=== PATIENT | female | born 2000 | race Hispanic/Latino ===

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

== ENCOUNTER 2019-10-21 19:52 | Observation (INO) ==
[2019-10-21] MEDS ORDERED: BOOSTRIX VACCINE IM ONE (20:01)
[2019-10-21] MEDS ORDERED: KEFZOL 1 GM/D5W 1 GM/50 ML IVPB IV ONE (20:01)
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
[2019-10-21] MEDS ORDERED: DILAUDID IV ONE (20:41)
[2019-10-21] MEDS ORDERED: ZOFRAN IV ONE (20:42)
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
[2019-10-21] MEDS ORDERED: ZOFRAN IV PRN (21:17)
[2019-10-21] MEDS ORDERED: NS 1,000 ML IV ONE (21:17)
[2019-10-21 21:30] LABS: BASO# 0.04 X1000 (0.0-0.2); BASO% 0.2 % (0.0-0.8); EOS# 0.22 X1000 (0.0-0.7); EOS% 1.3 % (0.0-10.0); HEMATOCRIT 43.5 % (37.0-47.0); HEMOGLOBIN 14.5 g/dL (12.0-16.0); IMM GRAN# 0.06 X1000 (0.0-0.04); IMM GRAN% 0.4 % (0.0-0.5); LYMPH# 2.98 X1000 (1.2-3.4); LYMPH% 17.7 % (20.5-51.1); MCH 27.9 PG (27-31); MCHC 33.3 g/dL (33-37); MCV 83.7 FL (81-99); MONO# 0.75 X1000 (0.11-0.59); MONO% 4.5 % (1.7-9.3); NEUT# 12.77 X1000 (1.4-6.5); NEUT% 75.9 % (42.2-75.2); PLT 336 X1000 (130-400); RDW 12.5 % (11.5-14.5); WBC 16.82 X1000 (4.8-10.8)
[2019-10-21] MEDS ORDERED: AMIDATE IV ONE (21:44)
[2019-10-21 22:18] LABS: INR 0.95; PROTIME 13.1 Seconds (11.0-16.0)
[2019-10-21 22:23] LABS: AGAP 15; ALBUMIN 5.4 g/dL (3.5-5.0); ALKALINE PHOSPHATASE 92 U/L (32-104); BUN 10 mg/dL (8-22); CALCIUM 9.5 mg/dL (8.8-10.2); CHLORIDE 106 mmol/L (98-107); COSMO 287; CREATININE 0.7 mg/dL (0.5-0.9); ESTIMATED GFR > 60; GLUCOSE 111 mg/dL (70-104); GOT 18 U/L (10-30); GPT 13 U/L (10-36); POTASSIUM 3.4 mmol/L (3.5-5.1); SODIUM 144 mmol/L (136-145); TCO2 24 mmol/L (25-35); TOTAL PROTEIN 8.7 g/dL (6.3-8.3)
[2019-10-21] MEDS: MORPHINE IV PRN (23:15)
[2019-10-21] MEDS ORDERED: KEFZOL 1 GM/D5W 1 GM/50 ML IVPB IV SCH (23:52)
[2019-10-22] MEDS: MORPHINE IV PRN ×6 (00:54→20:58)
[2019-10-22] MEDS ORDERED: DILAUDID IV ONE (03:51)
[2019-10-22] MEDS ORDERED: DIPRIVAN 1% ONE ×2 (05:38→07:36)
[2019-10-22] MEDS ORDERED: FENTANYL ONE (05:39)
[2019-10-22] MEDS ORDERED: VERSED ONE (06:09)
[2019-10-22] MEDS ORDERED: KEFZOL 2 GM/D5W 2 GM/50 ML IVPB ONE (06:11)
[2019-10-22] MEDS ORDERED: MARCAINE 0.25% PF/EPI 1:200,000 ONE (06:11)
[2019-10-22] MEDS ORDERED: NEO-SYNEPHRINE ONE (06:26)
[2019-10-22] MEDS ORDERED: EPHEDRINE ONE (06:26)
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
[2019-10-22] MEDS ORDERED: TORADOL ONE (07:05)
--- NOTE | 2019-10-22 07:10 | Diag Imaging Result Doc PS360 ---
EXAM: HAND COMPLETE RIGHT HISTORY: right finger pain TECHNIQUE: Three views COMPARISON: None. FINDINGS: No fracture. No dislocation. No bone erosions. Normal joint spaces. Normal mineralization. IMPRESSION: Negative exam Electronically signed by Fernando Melvin 10/22/2019 7:08 AM
--- NOTE | 2019-10-22 07:11 | Diag Imaging Result Doc PS360 ---
EXAM: ANKLE 2 VIEWS RIGHT HISTORY: right ankle reduction TECHNIQUE: Two views COMPARISON: 8:13 PM on 10/21/2019 FINDINGS: An external cast has been placed. Improved alignment to the distal fibula and tibia fractures. Electronically signed by Fernando Melvin 10/22/2019 7:09 AM
[2019-10-22] MEDS ORDERED: OFIRMEV 1000 MG/ISOTONIC SOLN 1,000 MG/100 ML BOTTLE ONE (07:50)
[2019-10-22] MEDS ORDERED: MARCAINE 0.5% PF ONE (08:35)
[2019-10-22] MEDS ORDERED: MILK OF MAGNESIA PO PRN (08:39)
[2019-10-22] MEDS ORDERED: ZOFRAN IV PRN (08:39)
[2019-10-22] MEDS: TYLENOL PO SCH ×3 (10:19→16:06)
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
[2019-10-22] MEDS: OXY IR PO PRN ×2 (11:19→15:31)
[2019-10-22] MEDS: KEFZOL 2 GM/D5W 2 GM/50 ML IVPB IV SCH ×2 (15:30→20:57)
[2019-10-22] MEDS ORDERED: COLACE PO SCH (21:00)
[2019-10-23] MEDS: OXY IR PO PRN ×3 (00:40→16:14)
[2019-10-23] MEDS: TYLENOL PO SCH ×2 (00:40→08:21)
[2019-10-23] MEDS: KEFZOL 2 GM/D5W 2 GM/50 ML IVPB IV SCH ×3 (03:00→15:00)
--- NOTE | 2019-10-23 05:19 | ORTHOPAEDICS PROGRESS NOTE ---
DATE: 10/22/2019 SUBJECTIVE: No acute events during the day. Patient is doing well. Pain is controlled since surgery. She is tolerating a diet. She is urinating voluntarily. OBJECTIVE: Afebrile. Vital signs stable. Extremities: Examination of right lower extremity shows short-leg splint to be intact in good repair. Toes are up and downgoing. Dorsalis pedis pulse is palpable. No pain with passive range of motion of the toes. Calf soft and compressible. Sensation intact to light touch in deep peroneal, superficial peroneal, and tibial nerve distribution. ASSESSMENT: A 18-year-old female status post debridement, irrigation and open reduction internal fixation of right type 1 open bimalleolar ankle fracture. PLAN: 1. Patient to be nonweightbearing right lower extremity. Therapy will work with her in the morning on mobilization with crutches. 2. Continue scheduled Ancef q.8 hours for 48 hours total. The patient should receive her last dose tomorrow afternoon. 3. Ice and elevate right lower extremity as needed for pain. 4. Disposition: Plan will be discharged home tomorrow afternoon when she finishes her course of antibiotics. I will see her back in clinic in 1 week for wound check, and to transition her into a cast.
[2019-10-23 07:11] LABS: HEMATOCRIT 34.3 % (37.0-47.0); HEMOGLOBIN 11.3 g/dL (12.0-16.0)
[2019-10-23 07:34] LABS: AGAP 12; BUN 6 mg/dL (8-22); CALCIUM 8.6 mg/dL (8.8-10.2); CHLORIDE 102 mmol/L (98-107); COSMO 273; CREATININE 0.5 mg/dL (0.5-0.9); ESTIMATED GFR > 60; GLUCOSE 97 mg/dL (70-104); POTASSIUM 3.7 mmol/L (3.5-5.1); SODIUM 138 mmol/L (136-145); TCO2 24 mmol/L (25-35)
[2019-10-23] MEDS: MORPHINE IV PRN (08:22)
--- NOTE | 2019-10-23 08:43 | ORTHOPAEDICS PROGRESS NOTE ---
DATE: 10/23/2019 SUBJECTIVE: No acute events overnight. Patient rested well overnight. She reports minimal pain in the ankle. No other complaints. She has tolerated a diet. She has been urinating on her own. OBJECTIVE: Hematocrit 34. PHYSICAL EXAMINATION: Extremities, the examination of the right lower extremity shows short leg splint to be intact in good repair. Toes are up and downgoing. Sensation intact to light touch in deep peroneal, superficial peroneal, tibial nerve distribution. Dorsalis pedis pulse is palpable. Calf is soft and compressible. ASSESSMENT: A 18-year-old female status post debridement and irrigation and open reduction internal fixation of right open ankle fracture, postoperative day 1. PLAN: 1. The patient is to be nonweightbearing on right lower extremity. Physical therapy to work on mobilization using crutches. 2. The patient is to finish off her Ancef this afternoon. 3. Ice and elevate right lower extremity as needed for pain. 4. Disposition. The patient will be discharged home this afternoon when she receives her last dose of Ancef. I will follow up with her in the clinic in 1 week for wound check and transition her into a cast. She was given a card and a number to set up an appointment.
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
[2019-10-23] MEDS ORDERED: ASPIRIN EC PO SCH (09:00)
[2019-10-23 11:20] VITALS: BP 121/71
== END 2019-10-23 16:36 | disposition home or self-care (01) ==
LOC: 4N 19:52 → P.ED 19:52
PROVIDERS: ADMIT Orthopaedic Surgery Sports Medicine; ATTEND Orthopaedic Surgery Sports Medicine